=== PATIENT | male | born 1960 | race African-American/Black ===

== ENCOUNTER → 2019-11-27 | Day surgery (SDC) | payer OTHER ==
[~2019-11-27] MED LIST: BUPIVACAINE HCL 0.5% INJ 30 ML VIAL INJ ONE; CEFAZOLIN SOD 1 GM/NS 50ML 50 ML IV ONE; DEXAMETHASONE SOD PHOS INJ 4 MG/ML VIAL ONE; FENTANYL CITRATE/PF 100MCG/2 ML INJ IV ONE; LABETALOL HCL 0 ML ONE; LIDOCAINE HCL 2% LOCAL INJ 5 ML SDV VIAL INJ ONE; LOSARTAN POTAS100 MG PO; LOZOL 2.5MG2.5 MG PO; MIDAZOLAM HCL 2 MG/2 ML VIAL INJ ONE; NIFEDIPINE ER90 MG PO; ONDANSETRON HCL INJ 2MG/ML 2ML 2 MG/ML VIAL ONE; PROPOFOL IV EMULSION 10 MG/ML 20 ML VIAL ONE; SEVOFLURANE INHAL SOLN 250 ML PEN BTL ONE
--- NOTE | 2019-11-27 08:36 | Operative Report ---
DATE OF PROCEDURE: 11/27/2019 SURGEON: Fili Grace MD [employer] ARCHITECT: Haroon Hatfield, certified PA. PREOPERATIVE DIAGNOSIS: Left wrist dorsal ganglion. POSTOPERATIVE DIAGNOSIS: Left wrist dorsal ganglion. PROCEDURE: Excision of left wrist dorsal ganglion. INDICATIONS: The patient is a 59-year-old gentleman, who has a long history of swelling and discomfort over the dorsal aspect of his left wrist. The location is consistent with a dorsal ganglion cyst. The patient states he would like to have this excised. The risks and benefits were discussed. The patient states he understands and wishes to proceed. PROCEDURE IN DETAIL: The patient was brought to the operating room and placed under general anesthetic. His left upper extremity was prepped and draped in a sterile manner. A preoperative time-out was performed. The extremity was exsanguinated and a proximal tourniquet was inflated to 250 mmHg. An incision was made in line with the extensor creases of the skin. The cystic mass was carefully dissected out. This was densely adherent to the extensor retinaculum over the wrist. I did not find any stalk that extended down to the scapholunate ligament. The mass was quite firm and thickened. There was some gelatinous material that was present and oozed from a small perforation in the cyst. The mass was sent to pathology. The wound was irrigated and closed with nylon stitches. A sterile bandage and a volar splint were applied. The patient was extubated and transported to the recovery room in stable condition. There was no blood loss and all needle and sponge counts were correct. Fili Grace MD DR/PALLAVI /[id number]
[2019-11-27 09:35] VITALS: BP 153/88
== END | disposition home or self-care (01) ==
LOC: OR 05:12
PROVIDERS: ATTEND Specialist
CPT/HCPCS: 88304; 93005; J0690; J1100; J2001; J2250; J2405; J3010

== ENCOUNTER → 2020-08-08 | Day surgery (SDC) | payer OTHER ==
[2020-08-05 10:05] LABS: BASOPHILS % 0.4 % (0.0-1.0); EOSINOPHILS # (AUTO) 0.1 (0.0-0.4); EOSINOPHILS % 1.2 % (0.0-6.0); HEMATOCRIT 37.7 % (38.2-49.6); HEMOGLOBIN 12.5 g/dL (14.0-18.0); LYMPHOCYTES # (AUTO) 1.3 (1.0-3.2); LYMPHOCYTES % 25.1 % (18.0-39.1); MEAN CORPUSCULAR HEMOGLOBIN 28.3 pg (28-32); MEAN CORPUSCULAR HGB CONC 33.2 g/dL (31-35); MEAN CORPUSCULAR VOLUME 85.5 fL (81-99); MONOCYTES # (AUTO) 0.5 (0.2-0.8); MONOCYTES % 8.7 % (4.4-11.3); NEUTROPHILS # (AUTO) 3.3 (2.1-6.9); NEUTROPHILS % 64.2 % (38.7-80.0); PLATELET COUNT 248 x10e3/uL (140-360); RED BLOOD COUNT 4.41 x10e6/uL (4.3-5.7); RED CELL DISTRIBUTION WIDTH 13.2 % (11.7-14.4)
[2020-08-05 10:32] LABS: ANION GAP 12.4 mmol/L (8-16); BLOOD UREA NITROGEN 15 mg/dL (7-26); BUN/CREATININE RATIO 13 (6-25); CARBON DIOXIDE 28 mmol/L (22-29); CHLORIDE 104 mmol/L (98-107); CREATININE, SERUM 1.15 mg/dL (0.72-1.25); EST GLOMERULAR FILTRATION RATE > 60 ML/MIN (60-); GLUCOSE 127 mg/dL (74-118); POTASSIUM 3.4 mmol/L (3.5-5.1); SODIUM 141 mmol/L (136-145)
[~2020-08-08] MED LIST changes: +BETAMETHASONE DISODIUM PHOS 6 MG/ML VIAL ONE; +CEFAZOLIN SOD 1 GM/NS 50ML 100 ML IV ONE; -CEFAZOLIN SOD 1 GM/NS 50ML 50 ML IV ONE; -FENTANYL CITRATE/PF 100MCG/2 ML INJ IV ONE; +FENTANYL CITRATE/PF 100MCG/2 ML INJ ONE; +KETOROLAC TROMETHAMINE 30 MG/ML VIAL ONE; -LABETALOL HCL 0 ML ONE; +LIDOCAINE HCL 1% LOCAL INJ 20 ML VIAL ONE; -MIDAZOLAM HCL 2 MG/2 ML VIAL INJ ONE; +MIDAZOLAM HCL 2 MG/2 ML VIAL ONE; +MUPIROCIN 2% OINT 22 GM TUBE ONE
[2020-08-08 09:10] VITALS: BP 132/76
== END | disposition home or self-care (01) ==
LOC: OR 05:28
PROVIDERS: ATTEND Podiatrist Foot Surgery
DX: M20.12 Hallux valgus (acquired), left foot (principal); M20.42 Other hammer toe(s) (acquired), left foot; M06.9 Rheumatoid arthritis, unspecified; I10 Essential (primary) hypertension; Z01.810 Encounter for preprocedural cardiovascular examination; Z01.812 Encounter for preprocedural laboratory examination; Z01.818 Encounter for other preprocedural examination; Z11.59 Encounter for screening for other viral diseases
CPT/HCPCS: 28285 ×4; 28296; 36415; 71046; 73620; 80048; 85025; 93005; C1713 ×2; J0690; J0720; J1100; J1885; J2001 ×2; J2250; J2405; J2704; J3010; U0002

== ENCOUNTER → 2022-08-10 | Day surgery (SDC) | payer OTHER ==
[2022-08-03 13:49] LABS: ANION GAP 13.4 mmol/L (8-16); CALCIUM 9.2 mg/dL (8.4-10.2); CREATININE, SERUM 1.02 mg/dL (0.72-1.25); POTASSIUM 3.4 mmol/L (3.5-5.1)
[~2022-08-10] MED LIST changes: +ACETAMINOPHEN 1000 MG/100 ML IV ONE; -BETAMETHASONE DISODIUM PHOS 6 MG/ML VIAL ONE; +BUPIVACAINE HCL 0.5% 10ML MPF VIAL INJ ONE; -BUPIVACAINE HCL 0.5% INJ 30 ML VIAL INJ ONE; -CEFAZOLIN SOD 1 GM/NS 50ML 100 ML IV ONE; +CELEBREX200 MG PO; +DEXAMETHASONE SOD PHOS INJ 4 MG/ML SDV IV ONE; -DEXAMETHASONE SOD PHOS INJ 4 MG/ML VIAL ONE; +KETOROLAC TROMETHAMINE 30 MG/ML VIAL IV ONE; -KETOROLAC TROMETHAMINE 30 MG/ML VIAL ONE; +LABETALOL HCL100 MG PO; -LIDOCAINE HCL 1% LOCAL INJ 20 ML VIAL ONE; +METHOCARBAMOL 100MG/1ML 10ML VIAL IV ONE; +Morphine 10mg syringe 10 MG/ML INJ ONE; +ONDANSETRON HCL INJ 2MG/ML 2ML 2 MG/ML VIAL IV ONE; -ONDANSETRON HCL INJ 2MG/ML 2ML 2 MG/ML VIAL ONE; +PLAQUENIL200 MG PO; +POVIDONE IODINE 0.05% 0.05 % ML PO ONE; +PROPOFOL IV EMULSION 10 MG/ML 20 ML VIAL IV ONE; -PROPOFOL IV EMULSION 10 MG/ML 20 ML VIAL ONE; +SEVOFLURANE INHAL SOLN 250 ML PEN BTL INH ONE; -SEVOFLURANE INHAL SOLN 250 ML PEN BTL ONE
[2022-08-10 14:35] VITALS: BP 155/85
== END | disposition home or self-care (01) ==
LOC: OR 09:48
PROVIDERS: ATTEND Podiatrist Foot & Ankle Surgery
DX: M20.11 Hallux valgus (acquired), right foot (principal); M20.41 Other hammer toe(s) (acquired), right foot; M24.574 Contracture, right foot; M19.071 Primary osteoarthritis, right ankle and foot; I10 Essential (primary) hypertension; Z01.810 Encounter for preprocedural cardiovascular examination; Z01.812 Encounter for preprocedural laboratory examination; Z79.899 Other long term (current) drug therapy
CPT/HCPCS: 28232; 28285 ×3; 28750; 36415; 80048; 93005; C1713 ×12; J0131; J0690; J1100; J1885; J2001; J2250; J2270; J2405; J2704; J2800; J3010

== ENCOUNTER 2023-01-18 09:02 | Observation (INO) | payer OTHER ==
[~2023-01-18] VITALS: Ht 175.3 cm; Wt 106.6 kg
[~2023-01-18 09:02] MED LIST changes: -ACETAMINOPHEN 1000 MG/100 ML IV ONE; -BUPIVACAINE HCL 0.5% 10ML MPF VIAL INJ ONE; -DEXAMETHASONE SOD PHOS INJ 4 MG/ML SDV IV ONE; -FENTANYL CITRATE/PF 100MCG/2 ML INJ ONE; -KETOROLAC TROMETHAMINE 30 MG/ML VIAL IV ONE; -LIDOCAINE HCL 2% LOCAL INJ 5 ML SDV VIAL INJ ONE; -METHOCARBAMOL 100MG/1ML 10ML VIAL IV ONE; -MIDAZOLAM HCL 2 MG/2 ML VIAL ONE; -MUPIROCIN 2% OINT 22 GM TUBE ONE; -Morphine 10mg syringe 10 MG/ML INJ ONE; -ONDANSETRON HCL INJ 2MG/ML 2ML 2 MG/ML VIAL IV ONE; -POVIDONE IODINE 0.05% 0.05 % ML PO ONE; -PROPOFOL IV EMULSION 10 MG/ML 20 ML VIAL IV ONE; +ROPIVACAINE 246.25 MG, EPINEPHRINE HCL 1:1000 1ML 0.5 MG, CLONIDINE HCL 0.08 MG, KETORO... INJ ONE; -SEVOFLURANE INHAL SOLN 250 ML PEN BTL INH ONE
[2023-01-18] MEDS ORDERED: CELECOXIB 200 MG CAP ONE (09:27)
[2023-01-18] MEDS ORDERED: GABAPENTIN 300 MG CAP ONE (09:27)
[2023-01-18] MEDS ORDERED: DEXAMETHASONE SOD PHOS 10 MG/1 ML VIAL ONE (09:27)
[2023-01-18] MEDS ORDERED: CEFAZOLIN SODIUM 2 GM ONE (09:28)
[2023-01-18] MEDS ORDERED: TRANEXAMIC ACID 20 ML ONE (12:08)
[2023-01-18] MEDS ORDERED: SODIUM CHLORIDE 0.9% 500ML 500 ML ONE (12:08)
[2023-01-18] MEDS ORDERED: Vancomycin IV 1,000 MG ONE (12:08)
[2023-01-18] MEDS ORDERED: LACTATED RINGER'S 1,000 ML ONE (12:25)
[2023-01-18] MEDS ORDERED: GLYCOPYRROLATE INJ 0.2 MG/ML VIAL ONE (12:41)
[2023-01-18] MEDS ORDERED: POVIDONE IODINE 0.05% 0.05 % ML PO ONE (12:41)
[2023-01-18] MEDS ORDERED: SEVOFLURANE INHAL SOLN 250 ML PEN BTL ONE (12:41)
[2023-01-18] MEDS ORDERED: LIDOCAINE HCL 2% LOCAL INJ 5 ML SDV VIAL INJ ONE (12:41)
[2023-01-18] MEDS ORDERED: PROPOFOL IV EMULSION 10 MG/ML 20 ML VIAL ONE (12:41)
[2023-01-18] MEDS ORDERED: ONDANSETRON HCL INJ 2MG/ML 2ML 2 MG/ML VIAL ONE (12:41)
[2023-01-18] MEDS ORDERED: EPHEDRINE SULFATE INJ 50 MG/ML VIAL ONE (12:41)
[2023-01-18] MEDS ORDERED: BUPIVACAINE HCL 0.5% INJ 30 ML VIAL INJ ONE (12:45)
[2023-01-18] MEDS ORDERED: SODIUM CHLORIDE 0.9% 1000ML 1,000 ML IV SCH (13:45)
[2023-01-18] MEDS ORDERED: ZOLPIDEM TARTRATE 5 MG TAB PO PRN (13:45)
[2023-01-18] MEDS ORDERED: ONDANSETRON HCL INJ 2MG/ML 2ML 2 MG/ML VIAL IV PRN (13:45)
[2023-01-18] MEDS ORDERED: DOCUSATE SODIUM 100 MG CAP PO PRN (13:45)
[2023-01-18] MEDS ORDERED: ACETAMINOPHEN 650 MG SUPP PR PRN (13:45)
[2023-01-18] MEDS ORDERED: HYDROCODONE/APAP 7.5MG-325MG 1 EA TAB PO PRN (13:45)
[2023-01-18] MEDS ORDERED: DIPHENHYDRAMINE HCL INJ 50 MG/ML VIAL IV PRN (13:45)
[2023-01-18] MEDS ORDERED: MIDAZOLAM HCL 2 MG/2 ML VIAL ONE ×2 (13:58→14:00)
[2023-01-18] MEDS ORDERED: FENTANYL CITRATE/PF 100MCG/2 ML INJ ONE ×2 (13:58→14:00)
[2023-01-18 16:00] VITALS: BP 158/75
[2023-01-18 16:10] VITALS: BP 174/85
[2023-01-18] MEDS ORDERED: PNEUMOCOCCAL VACCINE POLYVALENT 23 MCG/0.5 ML VIAL IM ONE (17:00)
[2023-01-18] MEDS: CELECOXIB 100 MG CAP PO SCH (17:56)
[2023-01-18] MEDS: HYDROCODONE/APAP 5MG-325MG TAB PO PRN ×2 (17:56→23:55)
[2023-01-18] MEDS: ASPIRIN 325 MG TAB PO SCH (17:57)
[2023-01-18] MEDS ORDERED: ACETAMINOPHEN 1000 MG/100 ML IV PRN (18:00)
[2023-01-18 20:11] VITALS: BP 145/82
[2023-01-19] VITALS (8 sets, daily range): BP systolic 153–185; BP diastolic 62–78
[2023-01-19 06:06] LABS: HEMATOCRIT 38.5 % (38.2-49.6); HEMOGLOBIN 12.6 g/dL (14.0-18.0)
[2023-01-19] MEDS: HYDROCODONE/APAP 5MG-325MG TAB PO PRN (06:21)
[2023-01-19] MEDS: ASPIRIN 325 MG TAB PO SCH (08:01)
[2023-01-19] MEDS: CELECOXIB 100 MG CAP PO SCH (08:02)
[2023-01-19] MEDS ORDERED: ONDANSETRON HCL 4 MG ORAL DISINTEGRATING TAB PO PRN (11:45)
== END 2023-01-19 13:51 | disposition home or self-care (01) ==
LOC: OR 09:02 → PACU V 13:42 → MED/SURG 15:55
PROVIDERS: ADMIT Specialist; ATTEND Specialist
DX: M17.0 Bilateral primary osteoarthritis of knee (principal); I10 Essential (primary) hypertension; Z01.818 Encounter for other preprocedural examination; Z20.822 Contact with and (suspected) exposure to COVID-19
CPT/HCPCS: 0223U; 27447; 36415 ×2; 73560; 85014; 85018; 86850; 86900; 86920; 93005; 94799 ×2; 97110; 97116 ×2; 97161; 97530 ×2; C1713 ×2; C1776 ×4; G0378 ×2; J0171; J0690 ×2; J1100; J1885; J2001; J2250; J2405; J2704; J2795; J3010; J3370; J7040; J7121